=== PATIENT | female | born 1955 | race Caucasian/White ===

== ENCOUNTER 2018-10-29 19:50 | Emergency (ER) | payer MEDICAID ==
[~2018-10-29 19:50] MED LIST: EPINEPHRINE INJ 1 MG/10 ML DISP.SYRIN ONE
[2018-10-29 19:57] VITALS: BP 159/75
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
== END 2018-10-29 22:41 | disposition other institution (70) ==
LOC: EDBD 19:50 → ER 19:50
DX: I46.9 Cardiac arrest, cause unspecified (principal); R09.02 Hypoxemia
CPT/HCPCS: 99285; 92950; J0171